=== PATIENT | female | born 1980 | race Caucasian/White ===

== ENCOUNTER 2016-05-22 18:38 | Emergency (ER) | payer OTHER ==
[~2016-05-22] VITALS: Ht 160 cm; Wt 66.7 kg
[2016-05-22] MEDS ORDERED: IBUPROFEN 600 MG TABLET PO ONE (19:45)
[2016-05-22] MEDS ORDERED: IBUPROFEN 600 MG TABLET ONE (19:45)
--- NOTE | 2016-05-22 19:50 | NUR ---
Patient discharged to home in stable conditon. Written and verbal after care instructions given. Patient verbalizes understanding of instructions.
== END 2016-05-22 19:51 | disposition home or self-care (01) ==
LOC: ER 18:38
DX: S61.002A Unspecified open wound of left thumb without damage to nail, initial encounter (principal); X58.XXXA Exposure to other specified factors, initial encounter; Y93.89 Activity, other specified; Y99.8 Other external cause status; Y92.89 Other specified places as the place of occurrence of the external cause
CPT/HCPCS: A4217; A4663